=== PATIENT | female | born 1950 | race Two or more races ===

== ENCOUNTER 2020-12-13 09:47 | Outpatient (CLI) | payer OTHER | END 2020-12-13 10:07 | disposition home or self-care (01) | LOC: SONOGRAMA 09:47 | PROVIDERS: ATTEND Obstetrics & Gynecology Gynecology | DX: N84.0 Polyp of corpus uteri (principal); N60.11 Diffuse cystic mastopathy of right breast; N60.12 Diffuse cystic mastopathy of left breast; R92.1 Mammographic calcification found on diagnostic imaging of breast; M81.0 Age-related osteoporosis without current pathological fracture; R31.21 Asymptomatic microscopic hematuria ==

== ENCOUNTER 2021-02-08 09:27 | Outpatient (CLI) | payer OTHER | END 2021-02-08 09:32 | disposition home or self-care (01) | LOC: MRI 09:27 | PROVIDERS: ATTEND Obstetrics & Gynecology Gynecology | DX: N60.11 Diffuse cystic mastopathy of right breast (principal); N60.12 Diffuse cystic mastopathy of left breast; R92.1 Mammographic calcification found on diagnostic imaging of breast; Z12.31 Encounter for screening mammogram for malignant neoplasm of breast; M81.0 Age-related osteoporosis without current pathological fracture; R31.21 Asymptomatic microscopic hematuria; R10.2 Pelvic and perineal pain; N83.291 Other ovarian cyst, right side; N83.292 Other ovarian cyst, left side | CPT/HCPCS: 72197; 76641; 77067; A9575 ==

== ENCOUNTER → 2021-03-15 | Outpatient (CLI) | payer OTHER | END | disposition home or self-care (01) | LOC: SONOGRAMA 08:09 | PROVIDERS: ATTEND Specialist | DX: N20.0 Calculus of kidney (principal); K80.80 Other cholelithiasis without obstruction ==

== ENCOUNTER 2021-05-29 12:15 | Inpatient (IN) | payer OTHER ==
[~2021-05-29] VITALS: Ht 149.9 cm; Wt 56.7 kg
[2021-05-29] MEDS ORDERED: SYNTHROID75 MCG PO (16:52)
[2021-05-29] MEDS ORDERED: FENOFIBRATE150 MG PO (16:53)
[2021-05-29] MEDS ORDERED: SIMVASTATIN10 MG PO (16:53)
[2021-05-29] MEDS ORDERED: HYDROCHLOROTH12.5 MG PO (16:53)
[2021-05-29] MEDS ORDERED: ALLERGY RELIE15.8 ML NASAL (16:54)
[2021-06-01] MEDS ORDERED: FENOFIBRIC ACI135 MG (06:59)
[2021-06-01] MEDS ORDERED: OMEPRAZOLE20 MG (07:01)
[2021-06-01] MEDS ORDERED: FAMOTIDINE20 MG (07:01)
== END 2021-06-03 12:57 | disposition home or self-care (01) | DRG 738 ==
LOC: O/R 05-31 07:42 → SURH 05-31 11:30 → SURG 05-31 23:47
PROVIDERS: ADMIT Specialist; ATTEND Specialist
PROC: 0UT70ZZ Resection of Bilateral Fallopian Tubes, Open Approach (ICD-10-PCS; 2021-05-31)
PROC: 0UT20ZZ Resection of Bilateral Ovaries, Open Approach (ICD-10-PCS; 2021-05-31)
PROC: 0UT90ZZ Resection of Uterus, Open Approach (ICD-10-PCS; principal; 2021-05-31 11:30)
DX: D39.12 Neoplasm of uncertain behavior of left ovary (principal); N72 Inflammatory disease of cervix uteri; N80.0 Endometriosis of uterus; D25.2 Subserosal leiomyoma of uterus; N83.291 Other ovarian cyst, right side; Z20.822 Contact with and (suspected) exposure to COVID-19